=== PATIENT | female | born 1970 | race Caucasian/White ===

== ENCOUNTER 2020-11-16 14:28 | Emergency (ER) | payer SELFPAY ==
[2020-11-16] MEDS ORDERED: Lorazepam 2 MG/ML VIAL ONE (15:19)
[2020-11-16] MEDS ORDERED: Fentanyl 100 MCG/2 ML VIAL ONE (15:19)
== END 2020-11-16 16:00 | disposition home or self-care (01) ==
LOC: BURERS 14:28
DX: N61.1 Abscess of the breast and nipple (principal); Z79.899 Other long term (current) drug therapy; E78.5 Hyperlipidemia, unspecified; E78.00 Pure hypercholesterolemia, unspecified; F17.210 Nicotine dependence, cigarettes, uncomplicated
CPT/HCPCS: 10060; 96374; 96375; J2060; J3010

== ENCOUNTER 2020-11-19 12:55 | Emergency (ER) | payer SELFPAY ==
[2020-11-19] MEDS ORDERED: Morphine 4 MG/ML VIAL ONE ×2 (13:30→14:27)
== END 2020-11-19 15:00 | disposition home or self-care (01) ==
LOC: BURERS 12:55
DX: N61.1 Abscess of the breast and nipple (principal); E78.00 Pure hypercholesterolemia, unspecified; E78.5 Hyperlipidemia, unspecified; F17.210 Nicotine dependence, cigarettes, uncomplicated; Z79.899 Other long term (current) drug therapy
CPT/HCPCS: 96372; 99282; J2270

== ENCOUNTER 2021-06-25 21:53 | Emergency (ER) | payer SELFPAY ==
[2021-06-25] MEDS ORDERED: Lidocaine 1% PF 5 ML VIAL ONE (22:47)
[2021-06-25] MEDS ORDERED: Sulfameth/Trimethoprim DS 800-160mg TAB ONE (23:31)
[2021-06-25] MEDS ORDERED: Cephalexin 250 MG CAP ONE (23:32)
== END 2021-06-26 00:01 | disposition home or self-care (01) ==
LOC: BURERS 21:53
DX: L02.01 Cutaneous abscess of face (principal); E78.5 Hyperlipidemia, unspecified; E78.00 Pure hypercholesterolemia, unspecified; F17.210 Nicotine dependence, cigarettes, uncomplicated
CPT/HCPCS: 10060